=== PATIENT | female | born 1970 ===

== ENCOUNTER 2017-07-12 08:23 | Emergency (ER) | payer SELFPAY ==
[2017-07-12 08:30] VITALS: BMI 22.8
--- NOTE | 2017-07-12 10:49 | ED PDOC ---
Lower Extremity Pain/Injury Time Seen by Provider: 07/12/17 09:11 Chief Complaint (Nursing): Lower Extremity Problem/Injury Chief Complaint (Provider): Lower Extremity Problem History Per: Patient History/Exam Limitations: no limitations Onset/Duration Of Symptoms: Days (x7) Current Symptoms Are (Timing): Still Present Additional Complaint(s): Libby Rodriguez is a 47 year old female with a past medical history of asthma, who is presenting to the ED with complaints of right knee pain associated with mild swelling, onset 1 week ago. 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 She denies any acute injury, trauma, fever, redness, skin changes, chest pain, or dizziness. Of note, patient states that she is able to ambulate. Note: Patient reports allergy to Ibuprofen, and states it causes tachycardia. PMD: [facility] Past Medical History Reviewed: Historical Data, Nursing Documentation, Vital Signs Vital Signs: Last Vital Signs Temp 97 F L 07/12/17 08:41 Pulse 85 07/12/17 08:41 Resp 16 07/12/17 08:41 BP 120/72 07/12/17 08:41 Pulse Ox 97 07/12/17 08:41 - Medical History PMH: Asthma - Surgical History Surgical History: (x2) Other surgeries: ovarian surgery - Family History Family History: States: Unknown Family Hx - Social History Current smoker - smoking cessation education provided: No Alcohol: None Drugs: Denies - Home Medications Home Medications: Ambulatory Orders Medication Instructions Recorded Promethazine HCl/Codeine 5 ml PO Q6 PRN #6 oz 04/23/15 [Prometh-Codein 6.25-10 mg/5 ml] Acetaminophen [Pain Reliever] 500 mg PO Q6 PRN #15 tablet 07/12/17 - Allergies Allergies/Adverse Reactions: Allergies Allergy/AdvReac Type Severity Reaction Status Date / Time ibuprofen [From Motrin] Allergy Mild RASH Verified 07/12/17 08:41 aspirin Allergy SHORTNESS Verified 07/12/17 08:41 OF BREATH Review of Systems ROS Statement: Except As Marked, All Systems Reviewed And Found Negative Constitutional: Negative for: Fever Cardiovascular: Negative for: Chest Pain Musculoskeletal: Positive for: Leg Pain (right knee, mild edema) Skin: Negative for: Rash Neurological: Negative for: Dizziness Physical Exam - Reviewed Nursing Documentation Reviewed: Yes Vital Signs Reviewed: Yes - Physical Exam Appears: Positive for: Non-toxic, No Acute Distress Head Exam: Positive for: ATRAUMATIC, NORMAL INSPECTION, NORMOCEPHALIC Skin: Positive for: Normal Color, Warm, DRY Back: Positive for: Normal Inspection. Negative for: L CVA Tenderness, R CVA Tenderness, Vertebral Tenderness Extremity: Positive for: Normal ROM (full: active and passive ROM), Other ((+) right knee; mild crepitus with ROM, (-) effusion, (-) warmth/erythema. Ankle and hip unremarkable. ) Neurologic/Psych: Positive for: Alert, Oriented. Negative for: Motor/Sensory Deficits - ECG O2 Sat by Pulse Oximetry: 97 (RA) Pulse Ox Interpretation: Normal Medical Decision Making Medical Decision Making: Time: 9:29 Plan: --X-Ray right knee --Tylenol 650 mg PO Workup for arthralgia with x-ray. Tylenol initiated. X-ray right knee: No acute fracture. Unremarkable with no clinically significant abnormalities. Initiate leslie wrap and recommend Tylenol and follow up with clinic. Upon provider reevaluation patient is feeling better, is medically stable, and requires no further treatment in the ED at this time. Patient will be discharged home. Counseling was provided and all questions were answered regarding diagnosis and need for follow up with clinic. There is agreement to discharge plan. Return if symptoms persist or worsen. Scribe Attestation: Documented by Angelica Mauricio, acting as a scribe for Aniceto Guillen DO. Provider Scribe Attestation: All medical record entries made by the Scribe were at my direction and personally dictated by me. I have reviewed the chart and agree that the record accurately reflects my personal performance of the history, physical exam, medical decision making, and the department course for this patient. I have also personally directed, reviewed, and agree with the discharge instructions and disposition. Disposition - Clinical Impression Clinical Impression: Knee pain - Patient ED Disposition Is Patient to be Admitted: No - Disposition Referrals: [facility] [Outside] Disposition: Routine/Home Disposition Time: 10:32 Condition: STABLE Additional Instructions: See [facility] for further testing and treatment. Return to ER for any fever, worse pain, swelling or any concern. Prescriptions: Acetaminophen [Pain Reliever] 500 mg PO Q6 PRN #15 tablet PRN Reason: Pain, Moderate (4-7) Instructions: Knee Pain (DC) Forms: [facility] (Thai) Print Language: KAZAKH
[2017-07-12 11:37] VITALS: BP 126/69; PULSE 70; RESP 18; TEMP 98; O2SAT 99
--- NOTE | 2017-07-12 12:29 | RAD ---
PROCEDURE: Right Knee Radiographs. HISTORY: Right knee pain and swelling 1 week duration. No antecedent history of trauma provided COMPARISON: None. FINDINGS: BONES: Normal. No fracture. JOINTS: Normal. No osteoarthritis. JOINT EFFUSION: None. OTHER FINDINGS: None. IMPRESSION: Normal radiographs of the right knee.
== END 2017-07-12 11:36 | disposition home or self-care (01) ==
LOC: H.ER 08:23
DX: M25.561 Pain in right knee (principal); J45.909 Unspecified asthma, uncomplicated; Z88.6 Allergy status to analgesic agent

== ENCOUNTER 2017-11-30 08:05 | Emergency (ER) | payer OTHER ==
[2017-11-30 08:06] VITALS: BMI 22.8
[2017-11-30 08:14] VITALS: TEMP 98
--- NOTE | 2017-11-30 10:04 | ED PDOC ---
HPI: Skin/Bite Injury Time Seen by Provider: 11/30/17 08:40 Chief Complaint (Nursing): Breast Problem Chief Complaint (Provider): Breast Problem History Per: Patient History/Exam Limitations: no limitations Onset/Duration Of Symptoms: Days (x4) Current Symptoms Are (Timing): Still Present Additional Complaint(s): 47 year old female presenting for evaluation of left breast discharge x4 days. Patient states she's had a small "mass" to her left breast for the past 2 months. She reports seeking medical attention multiple times, but states she's never been given a workup. Patient reports bloody discharge from the site on her left breast for the past 4 days. She denies any fevers, chills, chest pain, shortness of breath, abdominal pain, nausea, or vomiting. PMD: [facility] Past Medical History Reviewed: Historical Data, Nursing Documentation, Vital Signs Vital Signs: Last Vital Signs Temp 98.0 F 11/30/17 08:13 Pulse 84 11/30/17 08:13 Resp 20 11/30/17 08:13 BP 127/77 11/30/17 08:13 Pulse Ox 98 11/30/17 08:18 - Medical History PMH: Asthma - Surgical History Surgical History: (x2) - Family History Family History: States: Unknown Family Hx, Other Other Family History: Nevi - Social History Current smoker - smoking cessation education provided: No Alcohol: None Drugs: Denies - Home Medications Home Medications: Ambulatory Orders Medication Instructions Recorded Promethazine HCl/Codeine 5 ml PO Q6 PRN #6 oz 04/23/15 [Prometh-Codein 6.25-10 mg/5 ml] Acetaminophen [Pain Reliever] 500 mg PO Q6 PRN #15 tablet 07/12/17 Cephalexin [Keflex] 500 mg PO BID #14 capsule 11/30/17 - Allergies Allergies/Adverse Reactions: Allergies Allergy/AdvReac Type Severity Reaction Status Date / Time ibuprofen [From Motrin] Allergy Mild RASH Verified 11/30/17 08:18 aspirin Allergy SHORTNESS Verified 11/30/17 08:18 OF BREATH Review of Systems ROS Statement: Except As Marked, All Systems Reviewed And Found Negative Constitutional: Negative for: Fever, Chills Cardiovascular: Negative for: Chest Pain Respiratory: Negative for: Shortness of Breath Gastrointestinal: Negative for: Nausea, Vomiting, Abdominal Pain Skin: Positive for: Other (left breast wound with discharge) Physical Exam - Reviewed Nursing Documentation Reviewed: Yes Vital Signs Reviewed: Yes - Physical Exam Skin: Negative for: Normal Color (multiple nevi over full body) Cardiovascular/Chest: Positive for: Other (Breast Exam: Minoo Mcbride, RN. (+) small superficial wound adjacent to areola, (-) bleeding, (+) mild redness, (-) discharge, (-) vesicles; (+) nevus adjacent to superficial wound) Neurologic/Psych: Positive for: Alert, Oriented - ECG O2 Sat by Pulse Oximetry: 98 (RA) Pulse Ox Interpretation: Normal Medical Decision Making Medical Decision Making: Impression: Cellulitis. Differential diagnoses include, but are not limited to papillomatosis and fibromatosis. Plan: Patient given prescription for Keflex and advised to follow up with dermatology referral provided. Patient verbalized understanding of plan for discharge. Scribe Attestation: Documented by Guille Hopper, acting as a scribe for Guilherme Lorenz MD. Provider Scribe Attestation: All medical record entries made by the Scribe were at my direction and personally dictated by me. I have reviewed the chart and agree that the record accurately reflects my personal performance of the history, physical exam, medical decision making, and the department course for this patient. I have also personally directed, reviewed, and agree with the discharge instructions and disposition. Disposition - Clinical Impression Clinical Impression: Breast discharge - Patient ED Disposition Is Patient to be Admitted: No Counseled Patient/Family Regarding: Diagnosis, Need For Followup, Rx Given - Disposition Referrals: [facility] [Outside] Wade Weston MD [Medical Doctor] - Yong Watters MD [Medical Doctor] - Randy Gordon MD [Medical Doctor] - Disposition: Routine/Home Disposition Time: 09:57 Additional Instructions: RO MARTINEZ, thank you for letting us take care of you today. Your provider was Guilherme Lorenz MD and you were treated for BREAST DISCHARGE. The emergency medical care you received today was directed at your acute symptoms. If you were prescribed any medication, please fill it and take as directed. It may take several days for your symptoms to resolve. Return to the Emergency Department if your symptoms worsen, do not improve, or if you have any other problems. Please contact your doctor or call one of the physicians/clinics you have been referred to that are listed on the Patient Visit Information form that is included in your discharge packet. Bring any paperwork you were given at [facility] with you along with any medications you are taking to your follow up visit. Our treatment cannot replace ongoing medical care by a primary care provider outside of the emergency department. Thank you for allowing the [facility] team to be part of your care today. If you had an X-Ray or CT scan: A Radiologist will review the ED reading if any change in treatment is needed we will contact you. If you had a blood, urine, or wound culture: It will take several days for the results, if any change in treatment is needed we will contact you. If you had an STI test: It will take 48 hours for the results. Please call after 1 week if you have not heard back. Prescriptions: Cephalexin [Keflex] 500 mg PO BID #14 capsule Instructions: Common Breast Problems Forms: [employer] (Macedonian) Print Language: PARAGUAYAN
[2017-11-30 10:09] VITALS: BP 112/80; PULSE 80; RESP 18; O2SAT 98
== END 2017-11-30 10:06 | disposition home or self-care (01) ==
LOC: H.ER 08:05
DX: N64.52 Nipple discharge (principal)

== ENCOUNTER 2018-01-19 15:43 | Emergency (ER) | payer SELFPAY ==
[2018-01-19 15:44] VITALS: BMI 22.8
[2018-01-19] MEDS ORDERED: Albuterol-Ipratrop 3 mg / 0.5 (3 ml) UD INH STA ×2 (16:20→17:19)
[2018-01-19] MEDS ORDERED: Albuterol-Ipratrop 3 mg / 0.5 (3 ml) UD ONE (16:38)
--- NOTE | 2018-01-19 16:42 | ED PDOC ---
HPI: SOB/CHF/COPD Time Seen by Provider: 01/19/18 16:14 Chief Complaint (Nursing): Shortness Of Breath Chief Complaint (Provider): shortness of breath and chest congestion History Per: Patient History/Exam Limitations: language barrier ( at bedside translated) Onset/Duration Of Symptoms: Days (x3) Current Symptoms Are (Timing): Still Present Associated Symptoms: Chest Pain (w/ cough), Productive Cough (minimal). denies: Fever, Chills Additional Complaint(s): Libby Rodriguez is a 47 year old female, with a past medical history of asthma, who presents to the emergency department complaining of shortness of breath and chest congestion onset for x3 days associated with a minimal cough. Patient also reports a chest pain and back pain with cough. She took no medications at home. She denies any fever, chills or other medical complaints. PMD: None provided. Past Medical History Reviewed: Historical Data, Nursing Documentation, Vital Signs Vital Signs: Last Vital Signs Temp 98.3 F 01/19/18 16:06 Pulse 80 01/19/18 16:06 Resp 20 01/19/18 16:06 BP 130/86 01/19/18 16:06 Pulse Ox 100 01/19/18 16:06 - Medical History PMH: Asthma - Surgical History Surgical History: (x2) - Family History Family History: States: Unknown Family Hx - Social History Current smoker - smoking cessation education provided: No - Home Medications Home Medications: Ambulatory Orders Medication Instructions Recorded Promethazine HCl/Codeine 5 ml PO Q6 PRN #6 oz 04/23/15 [Prometh-Codein 6.25-10 mg/5 ml] Acetaminophen [Pain Reliever] 500 mg PO Q6 PRN #15 tablet 07/12/17 Cephalexin [Keflex] 500 mg PO BID #14 capsule 11/30/17 Albuterol 0.083% [Albuterol 0.083% 3 ml IH Q6H PRN #30 neb 01/19/18 Inhal Antonella (2.5 mg/3 ml) UD] Albuterol HFA [Ventolin HFA 90 2 puff IH [id number] PRN #1 bottle 01/19/18 mcg/actuation (8 g)] Nebulizer [Compact Compressor 1 dev XX PRN PRN #1 dev 01/19/18 Nebulizer] Prednisone 50 mg PO DAILY #4 tab 01/19/18 - Allergies Allergies/Adverse Reactions: Allergies Allergy/AdvReac Type Severity Reaction Status Date / Time ibuprofen [From Motrin] Allergy Mild RASH Verified 01/19/18 16:03 aspirin Allergy SHORTNESS Verified 01/19/18 16:03 OF BREATH Review of Systems ROS Statement: Except As Marked, All Systems Reviewed And Found Negative Constitutional: Negative for: Fever, Chills Cardiovascular: Positive for: Chest Pain (w/ cough) Respiratory: Positive for: Cough (minimal ), Shortness of Breath Musculoskeletal: Positive for: Back Pain (w/ cough) Physical Exam - Reviewed Nursing Documentation Reviewed: Yes Vital Signs Reviewed: Yes - Physical Exam Appears: Positive for: No Acute Distress Head Exam: Positive for: ATRAUMATIC, NORMAL INSPECTION, NORMOCEPHALIC Skin: Positive for: Normal Color, Warm, Dry Eye Exam: Positive for: Normal appearance, EOMI, PERRL ENT: Positive for: Normal ENT Inspection Neck: Positive for: Normal, Painless ROM Cardiovascular/Chest: Positive for: Regular Rate, Rhythm. Negative for: Murmur Respiratory: Positive for: Wheezing (minimal bilaterally), Other (Speaking full sentences). Negative for: Respiratory Distress Gastrointestinal/Abdominal: Positive for: Normal Exam, Soft. Negative for: Tenderness, Guarding, Rebound Back: Positive for: Normal Inspection. Negative for: L CVA Tenderness, R CVA Tenderness, Vertebral Tenderness Extremity: Positive for: Normal ROM (upper and lower extremities). Negative for: Deformity, Swelling Neurologic/Psych: Positive for: Alert, Oriented. Negative for: Motor/Sensory Deficits - Laboratory Results Result Diagrams: 01/19/18 16:45 01/19/18 16:45 - ECG Interpretation Of ECG: EKG #1: NSR @ 82, poor baseline V1-V2. EKG #2: NSR @ 79, no ST-T changes. O2 Sat by Pulse Oximetry: 100 (RA) Pulse Ox Interpretation: Normal - Radiology X-Ray: Interpreted by Hi X-Ray Interpretation: No Acute Disease Medical Decision Making Medical Decision Making: Time: 16:14 Initial Impression: Cough Initial Plan: --EKG --CMP --Troponin I --Urine dipstick --CBC w/ differential --D Dimer --PTT --PT --Chest two views (PA/LAT) [RAD] --Duoneb 3 ml INH --SOLU-medrol 125 mg IVP --Blood culture --Reevaluation 19:25 CTA Chest FINDINGS: PULMONARY ARTERIES No evidence of central or segmental pulmonary embolism is seen. AORTA There is no evidence for aneurysm or dissection of the thoracic aorta. LUNGS The lungs appear clear. PLEURAL SPACES No pneumothorax evident. No pleural effusions. HEART Normal heart size. No significant pericardial effusion. LYMPH NODES No lymphadenopathy is evident. BONES No focal osseous abnormality or acute fracture. UPPER ABDOMEN Images of the upper abdomen are unremarkable. IMPRESSION: Unremarkable pulmonary embolism protocol CTA of the chest. Scribe Attestation: Documented by Arley Walls, acting as a scribe for Polina Rich MD. Provider Scribe Attestation: All medical record entries made by the Scribe were at my direction and personally dictated by me. I have reviewed the chart and agree that the record accurately reflects my personal performance of the history, physical exam, medical decision making, and the department course for this patient. I have also personally directed, reviewed, and agree with the discharge instructions and disposition. Disposition - Clinical Impression Clinical Impression: Asthma exacerbation - Disposition Referrals: [facility] [Outside] Disposition: Routine/Home Disposition Time: 20:35 Condition: IMPROVED Prescriptions: Albuterol HFA [Ventolin HFA 90 mcg/actuation (8 g)] 2 puff IH [id number] PRN #1 bottle PRN Reason: Shortness Of Breath Albuterol 0.083% [Albuterol 0.083% Inhal Antonella (2.5 mg/3 ml) UD] 3 ml IH Q6H PRN #30 neb PRN Reason: Shortness Of Breath Nebulizer [Compact Compressor Nebulizer] 1 dev XX PRN PRN #1 dev PRN Reason: Shortness Of Breath Prednisone 50 mg PO DAILY #4 tab Instructions: Asthma in Adults Forms: [facility] (Macanese), [facility] ED School/Work Excuse Print Language: BRAZILIAN
[2018-01-19 17:21] LABS: BASO # 0.1 K/uL (0.0-0.2); BASO % 1.2 % (0.0-2.0); EOS # 0.1 K/uL (0.0-0.7); HEMOGLOBIN 12.2 g/dL (12.0-16.0); LYMPH # 1.9 K/uL (1.0-4.3); LYMPH % 29.7 % (20.0-40.0); MEAN CELL VOLUME 85.8 fl (81.0-99.0); MEAN CORPUSCULAR HEMOGLOBIN 27.6 pg (27.0-31.0); MEAN CORPUSCULAR HGB CONC 32.2 g/dL (33.0-37.0); MEAN PLATELET VOLUME 8.4 fl (7.2-11.7); MONO # 0.5 K/uL (0.0-0.8); MONO % 7.4 % (0.0-10.0); NEUT # 3.8 K/uL (1.8-7.0); NEUT % 59.7 % (50.0-75.0); RBC 4.42 Mil/uL (3.80-5.20); RED CELL DISTRIBUTION WIDTH 13.7 % (11.5-14.5); WHITE BLOOD COUNT 6.4 K/uL (4.8-10.8)
[2018-01-19 17:22] LABS: ALT/SGPT 25 U/L (9-52); AST/SGOT 19 U/L (14-36); BLOOD UREA NITROGEN 14 mg/dl (7-17); CALCIUM 9.3 mg/dL (8.4-10.2); GFR NON-AFRICAN AMERICAN > 60
[2018-01-19 17:31] LABS: INR 1.2; PROTHROMBIN TIME 13.2 Seconds (9.8-13.1)
[2018-01-19 17:34] LABS: PARTIAL THROMBOPLASTIN TIME 35.7 Seconds (25.6-37.1)
--- NOTE | 2018-01-19 18:06 | RAD ---
HISTORY: SOB COMPARISON: Chest x-ray performed 04/23/15 TECHNIQUE: Chest PA and lateral FINDINGS: LUNGS: Mild biapical pleural thickening. No focal consolidation. Please note that chest x-ray has limited sensitivity for the detection of pulmonary masses. PLEURA: No significant pleural effusion identified. No definite pneumothorax . CARDIOVASCULAR: Heart size appears within normal limits. No atherosclerotic calcification present. OSSEOUS STRUCTURES: No acute osseous abnormality identified. VISUALIZED UPPER ABDOMEN: Unremarkable. OTHER FINDINGS: None. IMPRESSION: Mild biapical pleural thickening. No focal consolidation.
[2018-01-19 18:26] VITALS: TEMP 98
[2018-01-19] MEDS ORDERED: Iodixanol 320 MG/ML 100 ML BOTTLE IV ONE (18:44)
[2018-01-19] MEDS ORDERED: Sodium Chloride 0.9% 50 ML IV ONE (18:44)
[2018-01-19 20:55] VITALS: BP 130/86; PULSE 78; RESP 20
--- NOTE | 2018-01-20 11:29 | CT ---
Date of service: 01/19/2018 PROCEDURE: CT Chest with contrast (Pulmonary Angiogram) HISTORY: SOB COMPARISON: None available. TECHNIQUE: Axial computed tomography images were obtained of the chest in the pulmonary arterial phase of enhancement. Coronal and sagittal reformatted images were created and reviewed. Intravenous contrast dose: 90 cc Visipaque [id number]. Mean Hounsfield value in the main pulmonary artery: 282.11 Radiation dose: Total exam DLP = <inf_radiation_dlp> mGy-cm. This CT exam was performed using one or more of the following dose reduction techniques: Automated exposure control, adjustment of the mA and/or kV according to patient size, and/or use of iterative reconstruction technique. FINDINGS: PULMONARY ARTERIES: Unremarkable. No pulmonary embolism. AORTA: No acute findings. No thoracic aortic aneurysm. No atherosclerotic calcification or mural plaque present. LUNGS: Unremarkable. No nodule, mass or pulmonary consolidation. PLEURAL SPACES: Unremarkable. No effusion or pneumothorax. HEART: Unremarkable. No cardiomegaly. No significant pericardial effusion. LYMPH NODES: No lymphadenopathy. BONES, CHEST WALL: Unremarkable. No fracture or destructive lesion OTHER FINDINGS: Unremarkable. IMPRESSION: Unremarkable CT pulmonary angiogram. No pulmonary embolus. Concordant results (preliminary interpretation) provided by [employer]. Procedure Completed: 18:52. Preliminary Report: Dictated and Authenticated: 19:25. Final Interpretation: 11:25. January 20, 2018
--- NOTE | 2018-01-20 19:21 | CARD ---
APPROVED REPORT Date of service: 01/19/2018 EKG Measurement Heart [id number] <Conclusion> Normal sinus rhythm Normal ECG
--- NOTE | 2018-01-20 20:02 | CARD ---
APPROVED REPORT Date of service: 01/19/2018 EKG Measurement Heart [id number] <Conclusion> Normal sinus rhythm Normal Electrocardiogram
[2018-01-29 15:12] VITALS: O2SAT 100
== END 2018-01-19 20:53 | disposition home or self-care (01) ==
LOC: H.ER 15:43
DX: J45.901 Unspecified asthma with (acute) exacerbation (principal); Z88.6 Allergy status to analgesic agent
CPT/HCPCS: 71046; 71275; 80053; 81025; 84484; 85025; 85378; 85610; 85730; 87040; 93005; 94640; 96374; 99284; J2930; Q9967

== ENCOUNTER 2018-05-31 14:42 | Emergency (ER) | payer SELFPAY ==
[2018-05-31 14:42] VITALS: BMI 22.8
[2018-05-31 14:50] VITALS: BP 133/86; PULSE 80; RESP 17; TEMP 97.9; O2SAT 97
--- NOTE | 2018-05-31 15:31 | ED PDOC ---
HPI: General Adult Time Seen by Provider: 05/31/18 15:15 Chief Complaint (Nursing): Med Refill Chief Complaint (Provider): Albuterol refill History Per: Patient History/Exam Limitations: no limitations Additional Complaint(s): 48 y/o F with hx of asthma who presents for Albuterol refill. She was feeling a little SOB this morning and noticed that her Albuterol for her nebulizer had finished. The SOB went away on its own and currently denies dizziness, palpitations, Chest pain, recent long distance travel. She has her albuterol pump and would like a refill for her Albuterol for her nebulizer. Past Medical History Reviewed: Historical Data, Nursing Documentation, Vital Signs Vital Signs: Last Vital Signs Temp 97.9 F 05/31/18 14:49 Pulse 80 05/31/18 14:49 Resp 17 05/31/18 14:49 BP 133/86 05/31/18 14:49 Pulse Ox 97 05/31/18 14:49 - Medical History PMH: Asthma - Surgical History Surgical History: (x2) - Family History Family History: States: Unknown Family Hx - Immunization History Hx Tetanus Toxoid Vaccination: No Hx Influenza Vaccination: Yes Hx Pneumococcal Vaccination: No - Home Medications Home Medications: Ambulatory Orders Medication Instructions Recorded Promethazine HCl/Codeine 5 ml PO Q6 PRN #6 oz 04/23/15 [Prometh-Codein 6.25-10 mg/5 ml] Acetaminophen [Pain Reliever] 500 mg PO Q6 PRN #15 tablet 07/12/17 Cephalexin [Keflex] 500 mg PO BID #14 capsule 11/30/17 Albuterol 0.083% [Albuterol 0.083% 3 ml IH Q6H PRN #30 neb 01/19/18 Inhal Antonella (2.5 mg/3 ml) UD] Albuterol HFA [Ventolin HFA 90 2 puff IH [id number] PRN #1 bottle 01/19/18 mcg/actuation (8 g)] Nebulizer [Compact Compressor 1 dev XX PRN PRN #1 dev 01/19/18 Nebulizer] Prednisone 50 mg PO DAILY #4 tab 01/19/18 Albuterol 0.083% [Albuterol 3 ml IH Q6 PRN 7 Days neb 05/31/18 Sulfate 3 Ml] - Allergies Allergies/Adverse Reactions: Allergies Allergy/AdvReac Type Severity Reaction Status Date / Time ibuprofen [From Motrin] Allergy Mild RASH Verified 01/19/18 16:03 aspirin Allergy SHORTNESS Verified 01/19/18 16:03 OF BREATH Review of Systems Constitutional: Negative for: Fever, Chills Cardiovascular: Negative for: Chest Pain Respiratory: Negative for: Cough, Shortness of Breath Physical Exam - Reviewed Nursing Documentation Reviewed: Yes Vital Signs Reviewed: Yes - Physical Exam Appears: Positive for: Well Cardiovascular/Chest: Positive for: Regular Rate, Rhythm Respiratory: Positive for: Normal Breath Sounds Neurological/Psych: Positive for: Awake, Alert, Oriented - ECG O2 Sat by Pulse Oximetry: 97 Medical Decision Making Medical Decision Making: Albuterol prescription provided Disposition - Clinical Impression Clinical Impression: Asthma - Patient ED Disposition Is Patient to be Admitted: No - Disposition Referrals: [facility] [Outside] Disposition: Routine/Home Disposition Time: 15:33 Condition: STABLE Additional Instructions: Follow up with your primary care doctor for future refills as can often be called in to your pharmacy. Return to ER if your shortness of breath returns and does not improve with albuterol. Prescriptions: Albuterol 0.083% [Albuterol Sulfate 3 Ml] 3 ml IH Q6 PRN 7 Days neb PRN Reason: Shortness Of Breath Instructions: Asthma, Adult (DC) Forms: [employer] (Togolese) Print Language: THAI
== END 2018-05-31 15:40 | disposition home or self-care (01) ==
LOC: SUPCPDRO 14:42 → H.ER 14:42
DX: Z76.0 Encounter for issue of repeat prescription (principal); J45.909 Unspecified asthma, uncomplicated